=== PATIENT | male | born 1995 | race Caucasian/White ===

== ENCOUNTER 2018-07-16 00:15 | Emergency (ER) | payer SELFPAY ==
[2018-07-16] MEDS ORDERED: Ibuprofen TAB* 400 MG PO ONE (00:51)
[2018-07-16] MEDS ORDERED: Silver Sulfadiazine 1% 400gm* 1 APPLIC JAR TOPICAL ONE (00:53)
[2018-07-16] MEDS ORDERED: oxyCODONE/Acetamin 5/325 MG* TAB PO ONE (00:58)
[2018-07-16] MEDS: oxyCODONE/Acetamin 5/325 MG* TAB PO ONE (01:04)
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
[2018-07-16 02:46] VITALS: BP 126/87
== END 2018-07-16 02:45 | disposition home or self-care (01) ==
LOC: ED 00:15
DX: T23.162A Burn of first degree of back of left hand, initial encounter (principal); X15.0XXA Contact with hot stove (kitchen), initial encounter; Y93.89 Activity, other specified; Y92.9 Unspecified place or not applicable
CPT/HCPCS: 99284; A9270-GY